=== PATIENT | male | born 1960 | race Caucasian/White ===

== ENCOUNTER → 2017-03-24 | Outpatient (CLI) | payer OTHER ==
--- NOTE | 2017-03-24 08:23 | US ---
EXAMINATION TYPE: US gallbladder DATE OF EXAM: 03/24/2017 COMPARISON: NONE CLINICAL HISTORY: R14.0Bloating,R14.3 Flatulence. Pt states bloating EXAM MEASUREMENTS: Liver Length: 18.4 cm Gallbladder Wall: 0.2 cm CBD: 0.5 cm Right Kidney: 11.4 x 5.9 x 5.5 cm Pancreas: wnl, tail obscured by bowel gas Liver: wnl Gallbladder: wnl Evidence for sonographic Ambrose's sign: No CBD: wnl Right Kidney: wnl IMPRESSION: No gallstones or ultrasound evidence for acute cholecystitis.
--- NOTE | 2017-03-24 09:02 | FL ---
EXAMINATION TYPE: FL UGI air DATE OF EXAM: 03/24/2017 COMPARISON: NONE HISTORY: Bloating and flatulence for one year per patient. TECHNIQUE: A double contrast UGI study is performed. A total of 42 seconds of fluoroscopic time was utilized during procedure. 24 spot images are saved and sent to PACS system. FINDINGS: Camera Engineer image of the abdomen shows no gross abnormality. The esophagus shows satisfactory motility and emptying into the stomach. No evidence of hiatal herni a or stricture noted. No intraluminal mass or diverticulum is appreciated. The stomach shows satisfactory peristalsis and distensibility with mild to moderate mucosal fold prom inence most prominent in the fundus. No evidence of any intraluminal mass or focal ulcer disease. N o significant gastroesophageal reflux was seen during real time performance of this study. The duodenal bulb, sweep, and proximal small bowel loops are unremarkable. IMPRESSION: Suspect mild to moderate underlying gastritis otherwise unremarkable study. Correlate cli nically.
== END | disposition home or self-care (01) ==
LOC: RADUSWWP 07:45
PROVIDERS: ATTEND Family Medicine
DX: R14.0 Abdominal distension (gaseous) (principal); R14.3 Flatulence
CPT/HCPCS: 74246; 76705

== ENCOUNTER → 2020-03-06 | Outpatient (CLI) | payer OTHER | END | disposition home or self-care (01) | LOC: LABWHC1 15:22 | PROVIDERS: ATTEND Family Medicine | DX: Z03.818 Encounter for observation for suspected exposure to other biological agents ruled out (principal); Z20.828 Contact with and (suspected) exposure to other viral communicable diseases | CPT/HCPCS: U0003; C9803 ==

== ENCOUNTER → 2022-07-16 | Outpatient (CLI) | payer OTHER ==
--- NOTE | 2022-07-16 16:23 | US ---
EXAMINATION TYPE: US carotid duplex BILAT DATE OF EXAM: 07/16/2022 COMPARISON: NONE CLINICAL HISTORY: R42 VERTIGO, SYNCOPE. TECHNIQUE: Carotid duplex ultrasound examination. Indirect Doppler criteria was utilized. FINDINGS: EXAM MEASUREMENTS: RIGHT: Peak Systolic Velocity (PSV) cm/sec ----- Right CCA: 88.8 ----- Right ICA: 112.1 ----- Right ECA: 187.3 ICA/CCA ratio: 1.3 RIGHT: End Diastole cm/sec ----- Right CCA: 24.1 ----- Right ICA: 39.6 ----- Right ECA: 38.6 LEFT: Peak Systolic Velocity (PSV) cm/sec ----- Left CCA: 86.6 ----- Left ICA: 91.9 ----- Left ECA: 170.7 ICA/CCA ratio: 1.1 LEFT: End Diastole cm/sec ----- Left CCA: 28.4 ----- Left ICA: 29.2 ----- Left ECA: 38.6 VERTEBRALS (direction of flow): Right Vertebral: Antegrade Left Vertebral: Antegrade Rhythm: Normal No significant stenosis IMPRESSION: Less than 50% stenosis of the carotid bifurcations. Criteria for Assigning % of Stenosis / Diameter reduction (Estimation based on the indirect measurements of the internal carotid artery velocities (ICA PSV). 1. Normal (no stenosis)=ICA PSV < 125 cm/s: ratio < 2.0: ICA EDV<40 cm/s. 2. Less than 50% stenosis=ICA PSV < 125 cm/s: ratio < 2.0: ICA EDV<40 cm/s. 3. 50 to 69% stenosis=ICA PSV of 125 to 230 cm/s: ration 2.0 ? 4.0: ICA EDV 40-100 cm/s. 4. Greater than 70% stenosis to near occlusion= ICA PSV > 230 cm/s: ratio > 4.0: ICA EDV > 100 cm/s. 5. Near occlusion= ICA PSV velocities may be low or undetectable: variable ratio and ICA EDV. 6. Total occlusion=unable to detect flow.
== END | disposition home or self-care (01) ==
LOC: RADUSWWP 15:23
PROVIDERS: ATTEND Family Medicine
DX: I65.23 Occlusion and stenosis of bilateral carotid arteries (principal); R42 Dizziness and giddiness; R55 Syncope and collapse
CPT/HCPCS: 93880

== ENCOUNTER 2023-02-08 14:28 | Emergency (ER) | payer OTHER ==
[2023-02-08 14:45] VITALS: RESP 16
[2023-02-08] MEDS ORDERED: SODIUM CHLORIDE 0.9% 500 ML 500 ML IV STA (15:06)
--- NOTE | 2023-02-08 15:06 | ED ---
Neuro HPI - General Chief Complaint: Neuro Symptoms/Deficit Stated Complaint: stroke symp Time Seen by Provider: 02/08/23 15:05 Source: patient, RN notes reviewed, old records reviewed Mode of arrival: wheelchair Limitations: no limitations - History of Present Illness Is the patient presenting with stroke symptoms?: No -: hour(s) Initial Comments: This is a 62-year-old male to the emergency department for evaluation. Patient is concerned of her blood pressure elevation today. He also felt some per iorbital perioral or his lips being numb and tingly. Patient then noticed his blood pressure be elevated in the second blood pressure was even increase in that. Patient otherwise has no complaints Location: other (Numbness until going around mouth) History of same: No Place: home Quality: numb, tingling Improves With: none Worsens With: none Context: other ([place] with symptoms) Associated Symptoms: denies other symptoms - Related Data Home Medications: Home Medications Medication Instructions Recorded Confirmed ALPRAZolam [Xanax] 0.5 mg PO BID PRN 02/08/23 02/08/23 Albuterol Inhaler [Ventolin Hfa 2 puff INHALATION RT-Q6H PRN 02/08/23 02/08/23 Inhaler] Aspirin EC [Ecotrin Low Dose] 81 mg PO DAILY 02/08/23 02/08/23 Cetirizine HCl [Zyrtec] 10 mg PO DAILY PRN 02/08/23 02/08/23 Cyclobenzaprine [Flexeril] 5 mg PO TID PRN 02/08/23 02/08/23 Fluticasone Nasal [place] [Flonase 1 - 2 spray EA NOSTRIL DAILY PRN 02/08/23 02/08/23 Nasal [place]] Gabapentin [Neurontin] 300 mg PO TID 02/08/23 02/08/23 Latanoprost [Latanoprost 0.005%] 1 drop BOTH EYES HS 02/08/23 02/08/23 Lidocaine [Aspercreme Patch] 1 patch TRANSDERM DAILY PRN 02/08/23 02/08/23 Losartan Potassium 100 mg PO DAILY 02/08/23 02/08/23 Meloxicam [Mobic] 15 mg PO HS 02/08/23 02/08/23 Montelukast [Singulair] 10 mg PO HS 02/08/23 02/08/23 Omeprazole 40 mg PO DAILY 02/08/23 02/08/23 Rosuvastatin [Crestor] 10 mg PO DAILY 02/08/23 02/08/23 Timolol 0.5% Ophth Soln [Timoptic 1 drop BOTH EYES DAILY 02/08/23 02/08/23 0.5% Ophth Soln] Umeclidinium Brm/Vilanterol Tr 1 puff INHALATION RT-DAILY 02/08/23 02/08/23 [Anoro Ellipta 62.5-25 Mcg INH] amLODIPine [Norvasc] 10 mg PO DAILY 02/08/23 02/08/23 Allergies/Adverse Reactions: Allergies Allergy/AdvReac Type Severity Reaction Status Date / Time No Known Allergies Allergy Verified 02/08/23 15:47 Review of Systems ROS Statement: Those systems with pertinent positive or pertinent negative responses have been documented in the HPI. ROS Other: All systems not noted in ROS Statement are negative. General Exam Limitations: no limitations General appearance: alert, in no apparent distress Head exam: Present: atraumatic, normocephalic, normal inspection Eye exam: Present: normal appearance, PERRL, EOMI. Absent: scleral icterus, conjunctival injection, periorbital swelling ENT exam: Present: normal exam, mucous membranes moist Neck exam: Present: normal inspection. Absent: tenderness, meningismus, lymphadenopathy Respiratory exam: Present: normal lung sounds bilaterally. Absent: respiratory distress, wheezes, rales, rhonchi, stridor Cardiovascular Exam: Present: regular rate, normal rhythm, normal heart sounds. Absent: systolic murmur, diastolic murmur, rubs, gallop, clicks GI/Abdominal exam: Present: soft, normal bowel sounds. Absent: distended, tenderness, guarding, rebound, rigid Extremities exam: Present: normal inspection, full ROM, normal capillary refill. Absent: tenderness, pedal edema, joint swelling, calf tenderness Back exam: Present: normal inspection Neurological exam: Present: alert, oriented X3, CN II-XII intact Psychiatric exam: Present: normal affect, normal mood Skin exam: Present: warm, dry, intact, normal color. Absent: rash Stroke MDM - Lab Data Result diagrams: 02/08/23 14:55 02/08/23 14:55 Lab Results 02/08/23 02/08/23 02/08/23 Range/Units 14:55 14:55 14:55 WBC 13.4 H (3.8-10.6) k/uL RBC 4.59 (4.30-5.90) m/uL Hgb 14.7 (13.0-17.5) gm/dL Hct 43.1 (39.0-53.0) % MCV 94.0 (80.0-100.0) fL MCH 32.0 (25.0-35.0) pg MCHC 34.1 (31.0-37.0) g/dL RDW 13.1 (11.5-15.5) % Plt Count 354 (150-450) k/uL MPV 8.9 Neutrophils % 67 % Lymphocytes % 23 % Monocytes % 6 % Eosinophils % 2 % Basophils % 1 % Neutrophils # 8.9 H (1.3-7.7) k/uL Lymphocytes # 3.0 (1.0-4.8) k/uL Monocytes # 0.8 (0-1.0) k/uL Eosinophils # 0.2 (0-0.7) k/uL Basophils # 0.1 (0-0.2) k/uL PT 10.1 (10.0-12.5) sec INR 0.9 (<1.2) APTT 24.3 (22.0-30.0) sec Sodium 139 (137-145) mmol/L Potassium 3.9 (3.5-5.1) mmol/L Chloride 107 (98-107) mmol/L Carbon Dioxide 20 L (22-30) mmol/L Anion Gap 12 mmol/L BUN 16 (9-20) mg/dL Creatinine 0.84 (0.66-1.25) mg/dL Est GFR (CKD-EPI)AfAm >90 (>60 ml/min/1.73 sqM) Est GFR (CKD-EPI)NonAf >90 (>60 ml/min/1.73 sqM) Glucose 107 H (74-99) mg/dL Calcium 9.4 (8.4-10.2) mg/dL Phosphorus 3.2 (2.5-4.5) mg/dL Magnesium 1.8 (1.6-2.3) mg/dL Total Bilirubin 0.5 (0.2-1.3) mg/dL AST 32 (17-59) U/L ALT 30 (4-49) U/L Alkaline Phosphatase 135 H (38-126) U/L Creatine Kinase 175 H (55-170) U/L Troponin I (0.000-0.034) ng/mL Total Protein 7.1 (6.3-8.2) g/dL Albumin 4.2 (3.5-5.0) g/dL 02/08/23 Range/Units 14:55 WBC (3.8-10.6) k/uL RBC (4.30-5.90) m/uL Hgb (13.0-17.5) gm/dL Hct (39.0-53.0) % MCV (80.0-100.0) fL MCH (25.0-35.0) pg MCHC (31.0-37.0) g/dL RDW (11.5-15.5) % Plt Count (150-450) k/uL MPV Neutrophils % % Lymphocytes % % Monocytes % % Eosinophils % % Basophils % % Neutrophils # (1.3-7.7) k/uL Lymphocytes # (1.0-4.8) k/uL Monocytes # (0-1.0) k/uL Eosinophils # (0-0.7) k/uL Basophils # (0-0.2) k/uL PT (10.0-12.5) sec INR (<1.2) APTT (22.0-30.0) sec Sodium (137-145) mmol/L Potassium (3.5-5.1) mmol/L Chloride (98-107) mmol/L Carbon Dioxide (22-30) mmol/L Anion Gap mmol/L BUN (9-20) mg/dL Creatinine (0.66-1.25) mg/dL Est GFR (CKD-EPI)AfAm (>60 ml/min/1.73 sqM) Est GFR (CKD-EPI)NonAf (>60 ml/min/1.73 sqM) Glucose (74-99) mg/dL Calcium (8.4-10.2) mg/dL Phosphorus (2.5-4.5) mg/dL Magnesium (1.6-2.3) mg/dL Total Bilirubin (0.2-1.3) mg/dL AST (17-59) U/L ALT (4-49) U/L Alkaline Phosphatase (38-126) U/L Creatine Kinase (55-170) U/L Troponin I <0.012 (0.000-0.034) ng/mL Total Protein (6.3-8.2) g/dL Albumin (3.5-5.0) g/dL - NIH Stroke Scale 1a. Level of Consciousness: (0) alert 1b. LOC Questions: (0) answers correctly 1c. LOC Commands: (0) performs tasks correctly 2. Best Gaze: (0) normal 3. Visual: (0) no visual loss 4. Facial Palsy: (0) normal symmetrical movement 5a. Motor Arm Left: (0) no drift 5b. Motor Arm Right: (0) no drift 6a. Motor Leg Left: (0) no drift 6b. Motor Leg Right: (0) no drift 7. Limb Ataxia: (0) absent 8. Sensory: (0) normal 9. Best Language: (0) no aphasia 10. Dysarthria: (0) normal 11. Extinction/Inattention: (0) no abnormality - Medical Decision Making 62 male to the emergency department for evaluation patient presents with lip paresthesias and hypertension. Patient symptoms are improved here in the ER he feels well can be discharged home - Radiology Data Radiology results: report reviewed (CT brain is negative for acute disease), image reviewed - EKG Data -: EKG Interpreted by Me (EKG is sinus a sent to 135 QRS 100 QTc 432) Past Medical History Past Medical History: Hypertension History of Any Multi-Drug Resistant Organisms: None Reported Past Surgical History: No Surgical Hx Reported Additional Past Anesthesia/Blood Transfusion Reaction / Comment(s): never had anesthesia, no family problems with it Past Psychological History: Anxiety Past Alcohol Use History: Occasional Past Drug Use History: Marijuana - Past Family History Mother Family Medical History: Cancer Course Vital Signs 02/08/23 02/08/23 02/08/23 14:38 14:48 17:37 Temperature 98.4 F 98.4 F Pulse Rate 102 H 102 H 89 Respiratory 16 16 16 Rate Blood Pressure 196/89 196/89 183/103 O2 Sat by Pulse 94 L 94 L 97 Oximetry 02/08/23 17:56 Temperature 98 F Pulse Rate Respiratory Rate Blood Pressure O2 Sat by Pulse Oximetry - Reevaluation(s) Reevaluation #1: 02/08/23 17:38 Medical record is reviewed Reevaluation #2: 02/08/23 17:39 Patient symptoms unchanged and blood pressures improved Reevaluation #3: Informed results and questions answered Reevaluation #4: 02/08/23 17:39 Was pt. sent in by a medical professional or institution (NARCISA Rosales, SOFTWARE SYSTEMS ANALYST, urgent care, hospital, or correction...) When possible be specific @ -no Did you speak to anyone other than the patient for history (EMS, parent, family, police, friend...)? What history was obtained from this source @ -no Did you review nursing and triage notes (agree or disagree)? Why? @ -agree Are old charts reviewed (outside hosp., previous admission, EMS record, old EKG, old radiological studies, urgent care reports/EKG's, correction records)? Report findings @ -yes Differential Diagnosis (chest pain, altered mental status, abdominal pain women, abdominal pain men, vaginal bleeding, weakness, fever, dyspnea, syncope, headache, dizziness, GI bleed, back pain, seizure, CVA, palpatations, mental health, musculoskeletal)? @ -prior EKG interpreted by me (3pts min.). @ -yes X-rays interpreted by me (1pt min.). @ -yes CT interpreted by me (1pt min.). @ -no U/S interpreted by me (1pt. min.). @ -no What testing was considered but not performed or refused? (CT, X-rays, U/S, labs)? Why? @ -none What meds were considered but not given or refused? Why? @ -none Did you discuss the management of the patient with other professionals (professionals i.e. NARCISA Rosales, SOFTWARE SYSTEMS ANALYST, lab, RT, psych nurse, social group worker, fire prevention specialist, teacher, ethics officer, manager case management)? Give summary @ -no Was smoking cessation discussed for >3mins.? @ -no Was critical care preformed (if so, how long)? @ -no Were there social determinants of health that impacted care today? How? (Homelessness, low income, unemployed, alcoholism, drug addiction, transportation, low edu. Level, literacy, decrease access to med. care, [facility], rehab)? @ -none Was there de-escalation of care discussed even if they declined (Discuss DNR or withdrawal of care, Hospice)? DNR status @ -no What co-morbidities impacted this encounter? (DM, HTN, Smoking, COPD, CAD, Cancer, CVA, ARF, Chemo, Hep., AIDS, mental health diagnosis, sleep apnea, morbid obesity)? @ -none Was patient admitted / discharged? Hospital course, mention meds given and route, prescriptions, significant lab abnormalities, going to OR and other pertinent info. @ - Undiagnosed new problem with uncertain prognosis? @ -no Drug Therapy requiring intensive monitoring for toxicity (Heparin, Nitro, Insulin, Cardizem)? @ -no Were any procedures done? @ -no Diagnosis/symptom? @ - Acute, or Chronic, or Acute on Chronic? @ -Acute Uncomplicated (without systemic symptoms) or Complicated (systemic symptoms)? @ -Complicated Side effects of treatment? @ -no Exacerbation, Progression, or Severe Exacerbation? @ -exacerbation Poses a threat to life or bodily function? How? (Chest pain, [place], SD, pneumonia, PE, COPD, DKA, ARF, appy, cholecystitis, CVA, Diverticulitis, Homicidal, Suicidal, threat to staff... and all critical care pts) @ -yes Reevaluation #5: 02/08/23 17:40 Differential CVA Ischemic stroke, hemorrhagic stroke, brain tumor, atypical migraine, Wernicke's encephalopathy, seizure, multiple sclerosis, meningitis, encephalitis, hypoglycemia, Guillain-Robin, electrolytes disturbance, myasthenia gravis.... This is not meant to be an all-inclusive list Critical Care Time Critical Care Time: Yes Total Critical Care Time: 31 Disposition Clinical Impression: Hypertension, Paresthesia of lower lip Disposition: ADMITTED IP TO THIS [facility] Condition: Fair Instructions (If sedation given, give patient instructions): Paresthesia (ED), Hypertension (ED) Is patient prescribed a controlled substance at d/c from ED?: No Referrals: Tiffany Amador MD [Primary Care Provider] - 1-2 days Time of Disposition: 17:40
[2023-02-08 15:30] LABS: ALT 30 U/L (4-49); AST 32 U/L (17-59); African American GFR (CKD) >90 (>60 ml/min/1.73 sqM); Albumin 4.2 g/dL (3.5-5.0); Alkaline Phosphatase 135 U/L (38-126); Anion Gap 12 mmol/L; Blood Urea Nitrogen 16 mg/dL (9-20); Calcium 9.4 mg/dL (8.4-10.2); Carbon Dioxide 20 mmol/L (22-30); Chloride 107 mmol/L (98-107); Creatine Kinase 175 U/L (55-170); Glucose 107 mg/dL (74-99); Magnesium 1.8 mg/dL (1.6-2.3); Non-African American GFR(CKD) >90 (>60 ml/min/1.73 sqM); Phosphorus 3.2 mg/dL (2.5-4.5); Potassium 3.9 mmol/L (3.5-5.1); Sodium 139 mmol/L (137-145); Total Bilirubin 0.5 mg/dL (0.2-1.3); Total Protein 7.1 g/dL (6.3-8.2)
[2023-02-08 15:36] LABS: Basophils # (A) 0.1 k/uL (0-0.2); Basophils % (A) 1 %; Eosinophils # (A) 0.2 k/uL (0-0.7); Eosinophils % (A) 2 %; HCT 43.1 % (39.0-53.0); HGB 14.7 gm/dL (13.0-17.5); Lymphocytes % (A) 23 %; MCHC 34.1 g/dL (31.0-37.0); Mean Platelet Volume 8.9; Monocytes # (A) 0.8 k/uL (0-1.0); Monocytes % (A) 6 %; Neutrophils # (A) 8.9 k/uL (1.3-7.7); Neutrophils % (A) 67 %; Platelet Count 354 k/uL (150-450); RBC 4.59 m/uL (4.30-5.90); RDW 13.1 % (11.5-15.5); WBC 13.4 k/uL (3.8-10.6)
[2023-02-08 15:48] LABS: INR 0.9 (<1.2); Partial Thromboplastin Time 24.3 sec (22.0-30.0); Prothrombin Time 10.1 sec (10.0-12.5)
--- NOTE | 2023-02-08 15:53 | CT ---
EXAMINATION TYPE: CT brain wo con CT DLP: 1096.4 mGycm, Automated exposure control for dose reduction was used. DATE OF EXAM: 02/08/2023 3:33 PM COMPARISON: None. CLINICAL INDICATION:Male, 62 years old with history of weakness, facial numbness above top lip that s tarted today TECHNIQUE: Brain: Multiple axial CT images of the brain were obtained without IV contrast. Coronal and sagittal reformatted view. FINDINGS: Brain: Extra-axial spaces: No abnormal extra-axial fluid collections. Ventricular system: Within normal limits Cerebral parenchyma: No acute intraparenchymal hemorrhage or mass effect. The gupta-white junction is well differentiated. Scattered hypoattenuating areas are seen within the white matter. Empty sella morphology. Cerebellum: Unremarkable. Mass effect: No evidence of midline shift. Intracranial vasculature: Atherosclerotic calcifications of the intracranial vessels. Soft tissues: Normal. Calvarium/osseous structures: No depressed skull fracture. Paranasal sinuses and mastoid air cells: Bilateral mastoid air cells are clear. Likely bilateral infe rior maxillary sinus mucous retention cysts. Visualized orbits: Orbital contents are intact. IMPRESSION: 1. No acute intracranial process. 2. Nonspecific white matter changes, likely secondary to chronic small vessel ischemic disease.
[2023-02-08] MEDS ORDERED: METOPROLOL TARTRATE 50 MG TAB PO STA (17:42)
[2023-02-08] MEDS ORDERED: cloNIDine HCL 0.1 MG TAB PO STA (17:42)
[2023-02-08 17:44] VITALS: BP 183/103; PULSE 89
[2023-02-08 18:00] VITALS: TEMP 98
== END 2023-02-08 17:56 | disposition other institution (70) ==
LOC: EC 14:28
DX: I10 Essential (primary) hypertension (principal); R20.2 Paresthesia of skin; F41.9 Anxiety disorder, unspecified; F12.90 Cannabis use, unspecified, uncomplicated; Z79.82 Long term (current) use of aspirin; Z79.899 Other long term (current) drug therapy
CPT/HCPCS: 36415; 70450; 80053; 82550; 83735; 84100; 84484; 85025; 85610; 85730; 93005; 96360; 99285

== ENCOUNTER → 2023-02-10 | Outpatient (CLI) | payer OTHER ==
--- NOTE | 2023-02-10 21:46 | CTL ---
EXAMINATION TYPE: CT Low Dose Lung DATE OF EXAM ORDERED: 02/10/2023 HISTORY: 62-year-old male smoker with 50 pack-year history. Z87.891 PERSONAL HISTORY OF NICOTINE DEP ENDENCE. Lung cancer screening CT DLP: 126.[address] CTDI: 3.6 mGy Automated exposure control for dose reduction was used. SCREENING VISIT: Baseline COMPARISON: Radiograph 09/03/2022 TECHNIQUE: Low dose computed tomography scan was performed through the chest with coronal and sagitta l reconstructions. CT DIAGNOSTIC QUALITY: Satisfactory FINDINGS: The heart is normal size with trace anterior basilar pericardial fluid. LAD and RCA coronary artery c alcifications are present. The aorta is normal caliber with mild atherosclerotic arch calcifications and conventional arch was a branching anatomy. Scattered nonenlarged mediastinal lymph nodes are present. Subcarinal lymph node borderline at 1.4 cm . There is mild bilateral gynecomastia. Hazy dependent atelectasis is present. Qens-li-pjshssfi diffuse bronchial wall thickening. Mild to mo derate centrilobular emphysema particularly in the upper lungs. 8mm inferior lingular pulmonary nodule, axial image 191. Otherwise, no suspicious pulmonary nodule is seen. Visualized upper abdomen shows mild fatty infiltration of the liver. Bones: Mild degenerative disc disease mid to lower thoracic spine. Some anterior bridging endplate sp ondylosis lower thoracic spine. IMPRESSION: 1. Lung RADS Category 4A (suspicious, 5-15% chance of malignancy); a solitary 8 mm inferior lingular pulmonary nodule on baseline screening. Three-month follow-up CT chest to reassess. 2. 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 Recommend smoking cessation. 3. Mild fatty infiltration of the liver. CT LUNG RAD AND CT CHEST RECOMMENDATION: Lung-Rad 4A Suspicious: Follow-up 3 month LDCT or PET/CT may be used when there is a > 8 mm solid component. S Modifier (other clinically significant findings): None
== END | disposition home or self-care (01) ==
LOC: RADCTMAIN 12:44
PROVIDERS: ATTEND Family Medicine
DX: Z12.2 Encounter for screening for malignant neoplasm of respiratory organs (principal); J43.2 Centrilobular emphysema; K76.0 Fatty (change of) liver, not elsewhere classified; R91.1 Solitary pulmonary nodule; F17.210 Nicotine dependence, cigarettes, uncomplicated
CPT/HCPCS: 71271

== ENCOUNTER 2023-03-02 09:34 | Day surgery (SDC) | payer OTHER ==
[2023-03-01 10:33] VITALS: BMI 29.5
[~2023-03-02 09:34] MED LIST: LACTATED RINGERS 1,000 ML IV SCH; LIDOCAINE 1% (10MG/ML) FOR IV START INTRADERMA PRN
[2023-03-02 10:44] VITALS: TEMP 98.2
[2023-03-02] MEDS ORDERED: LIDOCAINE 1% (10MG/ML) FOR IV START INTRADERMA ONE (10:47)
[2023-03-02] MEDS ORDERED: LIDOCAINE 2% (PF) 20 MG/ML 5 ML VIAL ONE (11:34)
[2023-03-02] MEDS ORDERED: PROPOFOL 10 MG/ML 20 ML VIAL IV ONE (11:34)
--- NOTE | 2023-03-02 12:01 | P.PCN ---
Date of Procedure: 03/02/23 Procedure(s) Performed: Brief history: Patient is a pleasant 62-year-old white male scheduled for an elective upper endoscopy as well as colonoscopy as a part of evaluation of GERD and screening for colon cancer/polyps cologuard. Procedure performed: Esophagogastroduodenoscopy with biopsy Colonoscopy with snare polypectomy and Endo Clip placement Preoperative diagnosis: GERD Screening for colon cancer/polyps cologuard. Anesthesia: MAC Procedure: After informed consent was obtained from the patient was brought into the endoscopy unit and IV sedation was administered by anesthesia under continuous monitoring. Initially upper endoscopy was done. The Olympus GF 160 video endoscope was inserted inserted into the mouth and esophagus intubated without any difficulty and was gradually advanced into the stomach and duodenum and carefully examined. The bulb and mild duodenitis and second part of the duodenum appeared normal. The scope was then withdrawn into the stomach adequately insufflated with air and upon careful examination the antrum had mild gastritis and biopsies were done from this area. The body, cardia and fundus appeared normal. The scope was then withdrawn into the esophagus. The GE junction was located at 45 cm to the incisors. It appeared irregular with 3 mm tongue of Holly's appearing mucosa proximal to the GE junction status post biopsy.. Rest of the esophagus appeared normal. Patient tolerated the procedure well. At this time the patient continued to remain sedation. Initial digital rectal examination was normal. Olympus CF 160 video colonoscope was then inserted into the rectum and gradually advanced to the cecum without any difficulty. Careful examination was performed as the scope was gradually being withdrawn. The prep was excellent. The cecum, and a 5 mm polyp removed by snare polypectomy. ascending colon, appeared normal. In the hepatic flexure there was a 2 cm broad-based polyp removed by snare polypectomy followed by Endo Clip placement. In the transverse colon there was a 1 cm polyp removed by snare polypectomy. In the mid transverse colon there was a 3 cm submucosal lipoma noted. Rest of the transverse colon, descending colon, sigmoid colon and rectum appeared normal. Retroflexion was performed in the rectum and no lesions were noted. Patient tolerated the procedure well. Impression: 1. Upper endoscopy revealed mild antral gastritis, duodenitis and short segment Holly's esophagus 2. Colonoscopy revealed: a) 5 mm cecal polyp status post polypectomy b) 2 cm broad-based hepatic flexure polyp status post polypectomy c) 1 cm proximal transverse colon polyp status post polypectomy Recommendations: Findings of this examination were discussed with the patient as well as his family. He was advised to follow with the biopsy results. Continue with omeprazole 20 mg daily and follow antireflux measures. If the biopsy reveals Holly's esophagus he can have a repeat upper endoscopy in 3 years. Recommend repeat colonoscopy in 3 years
[2023-03-02 12:46] VITALS: BP 126/74; PULSE 89; RESP 20
== END 2023-03-02 12:37 | disposition home or self-care (01) ==
LOC: ORWHC2ENDO 09:34
PROVIDERS: ATTEND Internal Medicine Gastroenterology
DX: K29.50 Unspecified chronic gastritis without bleeding (principal); K21.00 Gastro-esophageal reflux disease with esophagitis, without bleeding; D12.0 Benign neoplasm of cecum; D12.3 Benign neoplasm of transverse colon; K22.70 Barrett's esophagus without dysplasia; F12.90 Cannabis use, unspecified, uncomplicated; I10 Essential (primary) hypertension; J44.9 Chronic obstructive pulmonary disease, unspecified; Z79.02 Long term (current) use of antithrombotics/antiplatelets; Z79.51 Long term (current) use of inhaled steroids; Z79.82 Long term (current) use of aspirin; Z79.899 Other long term (current) drug therapy
CPT/HCPCS: 88305; 45382; 45385; 43239; J2704; J2001

== ENCOUNTER → 2023-06-14 | Outpatient (CLI) | payer OTHER ==
--- NOTE | 2023-06-14 15:51 | CTL ---
EXAMINATION TYPE: CT Low Dose Lung DATE OF EXAM ORDERED: 06/14/2023 HISTORY: Lung cancer screening CT DLP: [address] CTDI: 3.17 mGy Automated exposure control for dose reduction was used. COMPARISON: 02/10/2023 TECHNIQUE: Low dose computed tomography scan was performed through the chest at 1 mm thick sections a nd reconstructed images in multiple planes at 1 mm and 5 mm thick sections. Suboptimal diagnostic arya lity under 1 mm slices. FINDINGS: There are moderate emphysematous changes. The 7 - 8 mm nodule in the left lingula is stable. No new or suspicious lung mass or nodule is seen w ithin limits of technique. There is no airspace/consolidative density or abnormal interstitial density. There is no pleural effusion, pleural thickening or pneumothorax. The great vessels chest are normal. Limited scans the upper abdomen reveals no abnormality. No focal osseous lesions are seen IMPRESSION: 1. Lung metastases category 2 benign. Stable 7-8 mm nodule in the lingula. Continue routine screening at yearly intervals. 2. Moderate emphysematous changes. 3. No acute cardiopulmonary disease.
== END | disposition home or self-care (01) ==
LOC: RADCTMAIN 13:06
PROVIDERS: ATTEND Family Medicine
DX: Z12.2 Encounter for screening for malignant neoplasm of respiratory organs (principal); C78.02 Secondary malignant neoplasm of left lung; F17.210 Nicotine dependence, cigarettes, uncomplicated
CPT/HCPCS: 71271

== ENCOUNTER → 2023-06-14 | Outpatient (CLI) | payer OTHER ==
[2023-06-14 12:46] VITALS: BP 186/83; PULSE 90; RESP 16; TEMP 97.7
--- NOTE | 2023-06-14 12:48 | P.PAINPG ---
PQRS Measure Charge Sheet Comment: HISTORY OF PRESENT ILLNESS: A 63 yr old male presents today w severe and chronic LBP x 1 yr secondary to DDD, spondylosis and facet arthropathy without myelopathy for evaluation. Pt states pain level is provoked at 7 /10 in intensity, constant, localized in the lower lumbar spine, tight in character w shooting pain towards the RLE. Pain is provoked by laying supine for periods of 2 hr or more. Pain is alleviated by physician guided exercises from Dr York daily since Jan 2023, medications, repositioning and rest. Pt has BP of 186/ 83 which is 2nd reading of stage III hypertension, needs his BP medications adjusted and has been counseled again about dangers of elevated BP. Admits to occasional tobacco, ETOH and cannabis use. Pt is urged to go to ER for hypertensive urgency but appears disinterested at this time. MA w wheelchair provided. Interventional procedures include DENIES Medications include Neurontin, Flexeril, Mobic, ASA, Cannabis use REVIEW OF ORGAN SYSTEMS: CONSTITUTIONAL: No fevers or chills. No recent weight loss. NEUROLOGICAL: + numbness and tingling along the distal extremities. No seizure disorders or headaches. MUSCULOSKELETAL: + pain PSYCHIATRIC: Denies current depression or suicidal thoughts. Physical Examinations : Constitutional : Cooperative , not in acute distress . Neurologic : Cranial nerve II to XII intact. No focal neurological deficits. Psychiatric : alert & oriented x 3. Matching mood & appropriate affect. Judgment & insight intact. Musculoskeletal : Cervical Spine Motor strength in the deltoid and biceps: Normal right side. Normal Left side Motor strength biceps and the wrist extensors: Normal right side . Normal left side Motor strength in the triceps muscle: Normal right side. Normal left side Deep tendon reflexes: Normal at the biceps. Normal at Brachioradialis. Normal at triceps Vertebral body tenderness to deep palpation over Cervical facet loading test: positive bilaterally Spurling test: positive bilaterally Neck distraction test: positive bilaterally Eron sign: positive bilaterally Lumbar spine Motor strength lower extremities ,thigh and legs 5/5 Right side , 5/5 Left side Deep tendon reflexes : Normal Knee Jerk. Normal Ankle Jerk Vertebral body tenderness over L4 Awad Test positive Lumbar facet Loading Test: positive Right / positive Left Range of motion of the lumbar spine Flexion 30 degrees, extension 10 degrees Straight Leg Raise test: Left/ Right positive at <40 degrees [place] test: positive right / positive left. Severe tenderness over the Sacroiliac joint on the Right / Left sides Gaenslen test: positive bilaterally Seated flexion test: positive bilaterally. Sacral spine : Severe tenderness over the Sacroiliac joint: right side / left side Range of motion: Flexion of the lumbar spine <60 degrees Range of motion: Extension of the lumbar spine <20 degrees Gaenslen's Test positive Federico's Test positive [place] test: positive right side / left side Thigh Thrust Test Sacral Thrust Test Imaging: MRI noncontrast of the lumbar spine from 11/11/22 reviewed Assessment/ Plan : Lumbar anterolisthesis Recommendation of BELGICA L4-L5 #1. May need a series of injections for optimal pain relief. Risks, benefits of procedure discussed and pt verbalized understanding. Protocol for discontinuation/ continuation of medications valery procedure discussed. All questions answered. I have spent greater than 30 minutes on patient care today. Dr Vanegas was available by phone for the evaluation of this patient. The time was used to review the medical records including relevant urine studies and Prescription history (MAPs), review of the available imaging, evaluation and examination of the patient, coordination of care with the medical staff and if applicable referring physicians, as well as creation of the medical record PQRS Narrative: Smoking Status Current every day smoker Home Medications: Ambulatory Orders ALPRAZolam [Xanax] 0.5 mg PO BID PRN 02/08/23 Albuterol Inhaler [Ventolin Hfa Inhaler] 2 puff INHALATION RT-Q6H PRN 02/08/23 Aspirin EC [Ecotrin Low Dose] 81 mg PO DAILY 02/08/23 Cetirizine HCl [Zyrtec] 10 mg PO DAILY PRN 02/08/23 Fluticasone Nasal [place] [Flonase Nasal [place]] 1 - 2 spray EA NOSTRIL DAILY PRN 02/08/23 Gabapentin [Neurontin] 300 mg PO TID 02/08/23 Latanoprost [Latanoprost 0.005%] 1 drop BOTH EYES HS 02/08/23 Lidocaine [Aspercreme Patch] 1 patch TRANSDERM DAILY PRN 02/08/23 Losartan Potassium 100 mg PO DAILY 02/08/23 Meloxicam [Mobic] 15 mg PO HS 02/08/23 Montelukast [Singulair] 10 mg PO HS 02/08/23 Omeprazole 40 mg PO DAILY 02/08/23 Rosuvastatin [Crestor] 10 mg PO DAILY 02/08/23 Timolol 0.5% Ophth Soln [Timoptic 0.5% Ophth Soln] 1 drop BOTH EYES DAILY 02/08/23 Umeclidinium Brm/Vilanterol Tr [Anoro Ellipta 62.5-25 Mcg INH] 1 puff INHALATION RT-DAILY 02/08/23 amLODIPine [Norvasc] 10 mg PO DAILY 02/08/23 traZODone HCL 100 mg PO DAILY 03/01/23 Controlled Substance Measures - Controlled Substance Measures Is patient prescribed a controlled substance at discharge?: No
== END ==
LOC: PNWHC3 12:14
PROVIDERS: ATTEND Specialist
DX: M43.16 Spondylolisthesis, lumbar region (principal); F17.200 Nicotine dependence, unspecified, uncomplicated; Z79.82 Long term (current) use of aspirin
CPT/HCPCS: 99211

== ENCOUNTER 2023-07-08 12:03 | Day surgery (SDC) | payer OTHER ==
[~2023-07-08 12:03] MED LIST changes: -LIDOCAINE 1% (10MG/ML) FOR IV START INTRADERMA PRN
[2023-07-08 12:55] VITALS: TEMP 98.2
[2023-07-08] MEDS ORDERED: methylPREDNISolone ACETATE 80 MG/ML 1 ML VIAL ONE (13:06)
[2023-07-08] MEDS ORDERED: IOPAMIDOL M200 10 ML VIAL ONE (13:06)
--- NOTE | 2023-07-08 13:14 | P.PCN ---
Date of Procedure: 07/08/23 Procedure(s) Performed: PREOPERATIVE DIAGNOSIS: 1- Lumbar Degenerative Disc Diseases 2-Lumbar spondylosis with Facet arthropathy without myelopathy. POSTOPERATIVE DIAGNOSIS: 1-lumbar degenerative disc disease. 2-lumbar spondylosis with facet arthropathy without myelopathy. PROCEDURE 1. Lumbar epidural steroid injection under fluoroscopic guidance at the L4-5 level. (Fluoroscopy imaging was available in radiology department) 2. Lumbar epidurogram. ANESTHESIA: Lidocaine 1% 3 and then only. EBL: Minimal PROCEDURE INDICATION: The patient with low back pain and radiculitis symptoms unresponsive to conservative treatment. Fluoroscopy was used to optimize visualization of the needle placement and to maximize safety. PROCEDURE DESCRIPTION / TECHNIQUE: The patient was seen and identified in the preoperative area. Risks, benefits, complications including but not limited to infections ,bleeding ,allergic reaction to the medications ,nerve damage and not complete pain releife , and alternatives were discussed with the patient. The patient agreed to proceed with the procedure and signed the consent, and vital signs were stable. Patient was taken to the OR and time out was completed. The patient was placed in the prone position on procedure table and a pillow was placed under the ab domen to reduce lumbar lordosis. The lumbosacral area was prepped and draped in the usual sterile fashion.ere closely monitored during the procedure. Vital signs was monitered during the entire procedure. Using anterior-posterior fluoroscopy, the L4-5 interlaminar space was identified and the skin over this site was marked and then infiltrated with 1% lidocaine subcutaneously. Subsequently, a 20-gauge Tuohy epidural needle was inserted and advanced toward the epidural space using the ``Loss of resistance technique and guided by AP and lateral fluoroscopy. The correct needle position in the epidural space was verified with the injection of 2 mL of the water soluble contrast dye Isovue 200 contrast and observing an excellent epidurogram with the epidural spread of the dye, after negative aspiration for blood and CSF and in the absence of paresthesias. Again after negative aspiration, a 6 ml mixture containing 80 mg of Depo-medrol ( Preservetive Free ), and 2 ml of preservative free Normal Saline, and 2 ml of preservative free lidocaine 1% solution was injected and a washout of epidurogram was seen. Needle was withdrawn intact, skin was cleansed, and bandages were applied. COMPLICATIONS: None DISPOSITION / PLANS: The patient was placed in a supine position and transferred to the recovery area in a stable condition for observation. There was no evidence of lower extremity motor or sensory deficit after the procedure. Patient was discharged from the recovery room after meeting discharge criteria. Home discharge instructions were given to the patient by the staff. The patient was reexamined prior to discharge. The patient will schedule a follow up in the clinic in 2-4 weeks.
[2023-07-08 13:29] VITALS: PULSE 79; RESP 18
[2023-07-08 14:03] VITALS: BP 143/81
--- NOTE | 2023-07-08 15:38 | FL ---
EXAMINATION TYPE: FL guided pain mgmt statistic Intraoperative/procedural fluoroscopic services were provided. Total fluoroscopy time is 2.5 seconds with a total of 1 submitted images to PACS. Please se e the operative/procedural note for further details. DAP: [id number] mGym2
== END 2023-07-08 13:43 | disposition home or self-care (01) ==
LOC: ORPAIN 12:03
PROVIDERS: ATTEND Specialist
DX: M51.16 Intervertebral disc disorders with radiculopathy, lumbar region (principal); M47.26 Other spondylosis with radiculopathy, lumbar region
CPT/HCPCS: 62323; J1040; Q9966

== ENCOUNTER → 2023-10-18 | Outpatient (CLI) | payer OTHER ==
[2023-10-18 12:53] VITALS: BP 144/79; PULSE 65; RESP 16
--- NOTE | 2023-10-18 15:03 | P.PAINPG ---
PQRS Measure Charge Sheet Comment: HISTORY OF PRESENT ILLNESS: A 63 yr old male presents today w severe and chronic LBP x 1 yr secondary to DDD, spondylosis and facet arthropathy without myelopathy for evaluation s/p BELGICA L4-L5 #1. Pt states he experienced 90 % pain relief x 12 wks s/p procedure. Pt states pain level is provoked at 6 /10 in intensity, constant, localized in the lower lumbar spine, tight in character w occasional shooting pain towards the RLE. Pain is provoked by laying supine for periods > 2 hr. Pain is alleviated by physician guided exercises from Dr York daily since Jan 2023, medications, repositioning and rest. Interventional procedures include BELGICA L4-L5 x1 Medications include Neurontin, Flexeril, Mobic, ASA, Cannabis use REVIEW OF ORGAN SYSTEMS: CONSTITUTIONAL: No fevers or chills. No recent weight loss. NEUROLOGICAL: + numbness and tingling along the distal extremities. No seizure disorders or headaches. MUSCULOSKELETAL: + pain PSYCHIATRIC: Denies current depression or suicidal thoughts. Physical Examinations : Constitutional : Cooperative , not in acute distress . Neurologic : Cranial nerve II to XII intact. No focal neurological deficits. Psychiatric : alert & oriented x 3. Matching mood & appropriate affect. Judgment & insight intact. Musculoskeletal : Cervical Spine Motor strength in the deltoid and bic eps: Normal right side. Normal Left side Motor strength biceps and the wrist extensors: Normal right side . Normal left side Motor strength in the triceps muscle: Normal right side. Normal left side Deep tendon reflexes: Normal at the biceps. Normal at Brachioradialis. Normal at triceps Vertebral body tenderness to deep palpation over Cervical facet loading test: positive bilaterally Spurling test: positive bilaterally Neck distraction test: positive bilaterally Eron sign: positive bilaterally Lumbar spine Motor strength lower extremities ,thigh and legs 5/5 Right side , 5/5 Left side Deep tendon reflexes : Normal Knee Jerk. Normal Ankle Jerk Vertebral body tenderness over L4 Awad Test positive Lumbar facet Loading Test: positive Right / positive Left Range of motion of the lumbar spine Flexion 30 degrees, extension 10 degrees Straight Leg Raise test: Left/ Right po sitive at <40 degrees [place] test: positive right / positive left. Severe tenderness over the Sacroiliac joint on the Right / Left sides Gaenslen test: positive bilaterally Seated flexion test: positive bilaterally. Sacral spine : Severe tenderness over the Sacroiliac joint: right side / left side Range of motion: Flexion of the lumbar spine <60 degrees Range of motion: Extension of the lumbar spine <20 degrees Gaenslen's Test positive Federico's Test positive [place] test: positive right side / left side Thigh Thrust Test Sacral Thrust Test Imaging: MRI noncontrast of the lumbar spine from 11/11/22 reviewed Assessment/ Plan : Lumbar anterolisthesis Recommendation of R paramedian BELGICA L4-L5 #2. May need a series of injections for optimal pain relief. Risks, benefits of procedure discussed and pt verbalized understanding. Protocol for discontinuation/ continuation of medications valery procedure discussed. All questions answered. I have spent greater than 30 minutes on patient care today. Dr Vanegas was available by phone for the evaluation of this patient. The time was used to review the medical records including relevant urine studies and Prescription history (MAPs), review of the available imaging, evaluation and examination of the patient, coordination of care with the medical staff and if applicable referring physicians, as well as creation of the medical record PQRS Narrative: Smoking Status Current every day smoker Hx Alcohol Use (MH) Yes: OCCASIONAL Home Medications: Ambulatory Orders ALPRAZolam [Xanax] 0.5 mg PO BID PRN 02/08/23 Albuterol Inhaler [Ventolin Hfa Inhaler] 2 puff INHALATION RT-Q6H PRN 02/08/23 Cetirizine HCl [Zyrtec] 10 mg PO QAM PRN 02/08/23 Fluticasone Nasal [place] [Flonase Nasal [place]] 1 - 2 spray EA NOSTRIL DAILY PRN 02/08/23 Gabapentin [Neurontin] 300 mg PO TID 02/08/23 Latanoprost [Latanoprost 0.005%] 1 drop BOTH EYES HS 02/08/23 Lidocaine [Aspercreme Patch] 1 patch TRANSDERM DAILY PRN 02/08/23 Losartan Potassium 100 mg PO QAM 02/08/23 Meloxicam [Mobic] 15 mg PO HS 02/08/23 Montelukast [Singulair] 10 mg PO HS 02/08/23 Omeprazole 40 mg PO HS 02/08/23 Rosuvastatin [Crestor] 10 mg PO QAM 02/08/23 Timolol 0.5% Ophth Soln [Timoptic 0.5% Ophth Soln] 1 drop BOTH EYES DAILY 02/08/23 amLODIPine [Norvasc] 10 mg PO QAM 02/08/23 traZODone HCL 100 mg PO HS 03/01/23 Cyclobenzaprine [Flexeril] 10 mg PO TID PRN 07/06/23 Timolol [Betimol 0.5% Ophth Soln] 1 drop BOTH EYES BID 07/06/23 Tiotropium 18 Mcg/Puff [Spiriva] 1 puff INHALATION BID 07/06/23 Controlled Substance Measures - Controlled Substance Measures Is patient prescribed a controlled substance at discharge?: No
== END ==
LOC: PNWHC3 12:28
PROVIDERS: ATTEND Specialist
DX: M43.16 Spondylolisthesis, lumbar region (principal); F17.200 Nicotine dependence, unspecified, uncomplicated
CPT/HCPCS: 99211

== ENCOUNTER 2023-11-11 12:19 | Day surgery (SDC) | payer OTHER ==
[2023-11-11 12:40] VITALS: TEMP 98
[2023-11-11] MEDS ORDERED: IOPAMIDOL M300 15ML VIAL ONE (12:45)
[2023-11-11] MEDS ORDERED: methylPREDNISolone ACETATE 80 MG/ML 1 ML VIAL ONE (12:45)
[2023-11-11] MEDS ORDERED: ROPIVACAINE 5MG/ML 20ML VIAL ONE (12:45)
--- NOTE | 2023-11-11 13:06 | P.PCN ---
Description of Procedure: PREOPERATIVE DIAGNOSIS: 1- Lumbar Degenerative Disc Diseases 2-Lumbar spondylosis with Facet arthropathy without myelopathy. 3-lumbar spinal stenosis POSTOPERATIVE DIAGNOSIS: 1-lumbar degenerative disc disease. 2-lumbar spondylosis with facet arthropathy without myelopathy. 3-lumbar spinal stenosis. PROCEDURE Injection of radio contrast material into L4-5 interspace, interpretation of epidurogram, injection of steroid at L4- 5 epidural space under fluoroscopic guidance. ANESTHESIA: Lidocaine 1% subcutaneously. In OR continuous pulse ox, EKG, blood pressure and verbal communication was maintained with the patient. EBL: Minimal PROCEDURE INDICATION: Before the procedure were discussed with the patient detailed procedure, alternatives, complications including infection, bleeding, nerve damage, paralysis all of which could be permanent. Patient understands and all questions were answered. PROCEDURE DESCRIPTION : After getting consent, patient in OR in prone position. Back was prepped with chlorhexidine and draped in sterile fashion. After injecting 10 mL of 1% lidocaine subcutaneously, a 20-gauge Tuohy needle was introduced at L4 5 interspace with loss of resistance technique using a syringe filled with air. Negative CSF, negative blood, negative paresthesia. Needle position was confirmed with AP and lateral view of the fluoroscope. After repeat negative aspiration 2 mL of Omnipaque 200 water soluble contrast was injected. Contrast was noted in the epidural space. No contrast was noted into intrathecal or intravascular space. After repeat negative aspiration 6 mL solution was injected intermittently which consists of 5 mL of preservative-free normal saline mixed with 1 mL of 80 mg Depo-Medrol. Needle was withdrawn intact. Skin was cleansed and Band-Aids was applied. L5 VERTEBRAL BODY IS SACRALISED. VERTEBRAE WERE COUNTED FROM TOP UNDER FLUOROSCOPY. DISPOSITION / PLANS: The patient tolerated the procedure well. No complication. The patient was placed in a supine position and transferred to the recovery area in a stable condition for observation. There was no evidence of lower extremity motor or sensory deficit after the procedure. Patient was discharged from the recovery room after meeting discharge criteria. Home discharge instructions were given to the patient by the staff. The patient was reexamined prior to discharge. The patient will schedule a follow up in the clinic in 2-4 weeks.
[2023-11-11 13:34] VITALS: BP 143/82; PULSE 84; RESP 20
--- NOTE | 2023-11-11 13:48 | FL ---
Fluoroscopy History: MEAGAN RHODES 26 SEC FL TIME .02841 DAP
== END 2023-11-11 13:50 | disposition home or self-care (01) ==
LOC: ORPAIN 12:19
PROVIDERS: ATTEND Pain Medicine Interventional Pain Medicine
DX: M47.816 Spondylosis without myelopathy or radiculopathy, lumbar region (principal); M48.061 Spinal stenosis, lumbar region without neurogenic claudication; M51.36 Other intervertebral disc degeneration, lumbar region; Z79.1 Long term (current) use of non-steroidal anti-inflammatories (NSAID); Z79.899 Other long term (current) drug therapy
CPT/HCPCS: 62323; Q9967; J2795; J1010

== ENCOUNTER → 2023-12-02 | Outpatient (CLI) | payer OTHER | LOC: PNWHC3 14:17 | PROVIDERS: ATTEND Specialist | DX: M54.16 Radiculopathy, lumbar region | CPT/HCPCS: 99211 ==

== ENCOUNTER → 2024-08-09 | Outpatient (CLI) | payer OTHER ==
[2024-08-09 16:14] VITALS: BP 167/78; PULSE 75; RESP 19; TEMP 98.4
--- NOTE | 2024-08-09 19:08 | P.PAINPG ---
PQRS Measure Charge Sheet Comment: HISTORY OF PRESENT ILLNESS: A 64 yr old male presents today w severe and chronic LBP > 1 yr secondary to radiculopathy, spondylosis and facet arthropathy without myelopathy for evaluation s/p R paramedian BELGICA L4-L5 #2. Pt states he experienced 90 % pain relief x 6 mo s/p procedure. Pt states pain level is provoked at 7 /10 in intensity, constant, localized in the lower lumbar spine, tight in character w occasional shooting pain towards the hips and LEs. Pain is provoked by over activity. Pain is alleviated by physician guided exercises from Dr York daily since Jan 2023, medications, repositioning and rest. Interventional procedures include BELGICA L4-L5 x1, R paramedian BELGICA L4-L5 x1 (11/16) Medications include Neurontin, Flexeril, Mobic, ASA, Cannabis use REVIEW OF ORGAN SYSTEMS: CONSTITUTIONAL: No fevers or chills. No recent weight loss. NEUROLOGICAL: + numbness and tingling along the distal extremities. No seizure disorders or headaches. MUSCULOSKELETAL: + pain PSYCHIATRIC: Denies current depression or suicidal thoughts. Physical Examinations : Constitutional : Cooperative , not in acute distress . Neurologic : Cranial nerve II to XII intact. No focal neurological deficits. Psychiatric : alert & oriented x 3. Matching mood & appropriate affect. Judgment & insight intact. Musculoskeletal : Cervical Spine Motor strength in the deltoid and biceps: Normal right side. Normal Left side Motor strength biceps and the wrist extensors: Normal right side . Normal left side Motor strength in the triceps muscle: Normal right side. Normal left side Deep tendon reflexes: Normal at the biceps. Normal at Brachioradialis. Normal at triceps Vertebral body tenderness to deep palpation over Cervical facet loading test: positive bilaterally Spurling test: positive bilaterally Neck distraction test: positive bi laterally Eron sign: positive bilaterally Lumbar spine Motor strength lower extremities ,thigh and legs 5/5 Right side , 5/5 Left side Deep tendon reflexes : Normal Knee Jerk. Normal Ankle Jerk Vertebral body tenderness over L4 Awad Test positive Lumbar facet Loading Test: positive Right / positive Left Range of motion of the lumbar spine Flexion 30 degrees, extension 10 degrees Straight Leg Raise test: Left/ Right positive at <40 degrees [place] test: positive right / positive left. Severe tenderness over the Sacroiliac joint on the Right / Left sides Gaenslen test: positive bilaterally Seated flexion test: positive bilaterally. Sacral spine : Severe tenderness over the Sacroiliac joint: right side / left side Range of motion: Flexion of the lumbar spine <60 degrees Range of motion: Extension of the lumbar spine <20 degrees Gaenslen's Test positive Federico's Test positive [place] test: positive right side / left side Thigh Thrust Test Sacral Thrust Test Imaging: MRI non contrast of the lumbar spine from 11/11/22 reviewed Assessment/ Plan : Lumbar anterolisthesis Recommendation of BELGICA L4-L5 #3. Risks, benefits of procedure discussed and pt verbalized understanding. Protocol for discontinuation/ continuation of medications valery procedure discussed. All questions answered. I have spent greater than 30 minutes on patient care today. Dr Vanegas was available by phone for the evaluation of this patient. The time was used to review the medical records including relevant urine studies and Prescription history (MAPs), review of the available imaging, evaluation and examination of the patient, coordination of care with the medical staff and if applicable referring physicians, as well as creation of the medical record PQRS Narrative: Smoking Status Current every day smoker Hx Alcohol Use (MH) Yes: OCCASIONAL Home Medications: Ambulatory Orders ALPRAZolam [Xanax] 0.5 mg PO BID PRN 02/08/23 Albuterol Inhaler [Ventolin Hfa Inhaler] 2 puff INHALATION RT-Q6H PRN 02/08/23 Cetirizine HCl [Zyrtec] 10 mg PO QAM PRN 02/08/23 Fluticasone Nasal [place] [Flonase Nasal [place]] 1 - 2 spray EA NOSTRIL DAILY PRN 02/08/23 Gabapentin [Neurontin] 300 mg PO TID 02/08/23 Latanoprost [Latanoprost 0.005%] 1 drop BOTH EYES HS 02/08/23 Lidocaine [Aspercreme Patch] 1 patch TRANSDERM DAILY PRN 02/08/23 Losartan Potassium 100 mg PO QAM 02/08/23 Meloxicam [Mobic] 15 mg PO HS 02/08/23 Montelukast [Singulair] 10 mg PO HS 02/08/23 Omeprazole 40 mg PO HS 02/08/23 Rosuvastatin [Crestor] 10 mg PO QAM 02/08/23 Timolol 0.5% Ophth Soln [Timoptic 0.5% Ophth Soln] 1 drop BOTH EYES DAILY 10/16/23 amLODIPine [Norvasc] 10 mg PO QAM 02/08/23 Cyclobenzaprine [Flexeril] 10 mg PO TID PRN 07/06/23 Timolol [Betimol 0.5% Ophth Soln] 1 drop BOTH EYES BID 07/06/23 Tiotropium 18 Mcg/Puff [Spiriva] 1 puff INHALATION BID PRN 07/06/23 Controlled Substance Measures - Controlled Substance Measures Is patient prescribed a controlled substance at discharge?: No
== END ==
LOC: PNWHC3 12:54
PROVIDERS: ATTEND Specialist
DX: M43.16 Spondylolisthesis, lumbar region (principal); F17.200 Nicotine dependence, unspecified, uncomplicated
CPT/HCPCS: 99212

== ENCOUNTER 2024-08-24 11:06 | Day surgery (SDC) | payer OTHER ==
[2024-08-22 14:04] VITALS: BMI 28.3
[2024-08-24 11:27] VITALS: TEMP 97.7
[2024-08-24] MEDS ORDERED: IOPAMIDOL M200 10 ML VIAL ONE (12:29)
[2024-08-24] MEDS ORDERED: methylPREDNISolone ACETATE 80 MG/ML 1 ML VIAL ONE (12:29)
--- NOTE | 2024-08-24 12:41 | P.PCN ---
Description of Procedure: PREOPERATIVE DIAGNOSIS: 1- Lumbar Degenerative Disc Diseases 2-Lumbar spondylosis with Facet arthropathy without myelopathy. 3-lumbar spinal stenosis POSTOPERATIVE DIAGNOSIS: 1-lumbar degenerative disc disease. 2-lumbar spondylosis with facet arthropathy without myelopathy. 3-lumbar spinal stenosis. PROCEDURE Injection of radio contrast material into L4-5 interspace, interpretation of epidurogram, injection of steroid at L4- 5 epidural space under fluoroscopic guidance. ANESTHESIA: Lidocaine 1% subcutaneously. In OR continuous pulse ox, EKG, blood pressure and verbal communication was maintained with the patient. EBL: Minimal PROCEDURE INDICATION: Before the procedure were discussed with the patient detailed procedure, alternatives, complications including infection, bleeding, nerve damage, paralysis all of which could be permanent. Patient understands and all questions were answered. PROCEDURE DESCRIPTION : After getting consent, patient in OR in prone position. Back was prepped with chlorhexidine and draped in sterile fashion. After injecting 10 mL of 1% lidocaine subcutaneously, a 20-gauge Tuohy needle was introduced at L4 5 interspace with loss of resistance technique using a syringe filled with air. Negative CSF, negative blood, negative paresthesia. Needle position was confirmed with AP and lateral view of the fluoroscope. After repeat negative aspiration 2 mL of Omnipaque 200 water soluble contrast was injected. Contrast was noted in the epidural space. No contrast was noted into intrathecal or intravascular space. After repeat negative aspiration 6 mL solution was injected intermittently which consists of 5 mL of preservative-free normal saline mixed with 1 mL of 80 mg Depo-Medrol. Needle was withdrawn intact. Skin was cleansed and Band-Aids was applied. DISPOSITION / PLANS: The patient tolerated the procedure well. No complication. The patient was placed in a supine position and transferred to the recovery area in a stable condition for observation. There was no evidence of lower extremity motor or sensory deficit after the procedure. Patient was discharged from the recovery room after meeting discharge criteria. Home discharge instructions were given to the patient by the staff. The patient was reexamined prior to discharge. The patient will schedule a follow up in the clinic in 2-4 weeks.
[2024-08-24 12:47] VITALS: RESP 14
--- NOTE | 2024-08-24 12:54 | FL ---
Fluoroscopy History: MEAGAN 15 SEC FLUORO, DAP .[id number], MEAGAN [facility], , 08/24/2024 12:52 PM
[2024-08-24 13:01] VITALS: BP 154/85; PULSE 79
== END 2024-08-24 13:15 | disposition home or self-care (01) ==
LOC: ORPAIN 11:06
PROVIDERS: ATTEND Pain Medicine Interventional Pain Medicine
DX: M47.816 Spondylosis without myelopathy or radiculopathy, lumbar region (principal); M51.369 Other intervertebral disc degeneration, lumbar region without mention of lumbar back pain or lower extremity pain; M48.061 Spinal stenosis, lumbar region without neurogenic claudication
CPT/HCPCS: 62323; Q9966; J1010

== ENCOUNTER 2024-10-10 12:53 | Day surgery (SDC) | payer OTHER ==
[2024-10-06 16:12] VITALS: BMI 29.2
[2024-10-10 13:09] VITALS: TEMP 97.5
[2024-10-10] MEDS ORDERED: IOPAMIDOL M300 15ML VIAL ONE (14:04)
[2024-10-10] MEDS ORDERED: methylPREDNISolone ACETATE 80 MG/ML 1 ML VIAL ONE (14:04)
[2024-10-10 14:24] VITALS: RESP 16
[2024-10-10] MEDS: LOSARTAN 50 MG TAB PO STA (14:28)
[2024-10-10] MEDS: amLODIPine 10 MG TAB PO STA (14:28)
--- NOTE | 2024-10-10 14:30 | FL ---
Fluoroscopy INDICATION: Pain FINDINGS: Fluoroscopy time: 8.2 seconds. Total dose area product (DAP) in uGy*m?, mGy*cm? (or similar): 0.28456 Images obtained: 3. Images document needle was directed towards the lumbar spine IMPRESSION: 1. Documentation of fluoroscopy. [facility], , 10/10/2024 2:28 PM
[2024-10-10] MEDS: IV FLUID CONTINUATION 1,000 ML IV ONE (16:00)
[2024-10-10] MEDS: LACTATED RINGERS 1,000 ML IV SCH (16:09)
[2024-10-10] MEDS: LABETALOL SYRINGE 5 MG/ML (4 ML SYR) IVP STA (16:10)
[2024-10-10] MEDS: hydrALAZINE HCL 20 MG/ML 1 ML VIAL IVP STA (16:10)
[2024-10-10 16:45] VITALS: BP 175/83; PULSE 81
== END 2024-10-10 16:49 | disposition home or self-care (01) ==
LOC: ORPAIN 12:53
PROVIDERS: ATTEND Anesthesiology
DX: M47.816 Spondylosis without myelopathy or radiculopathy, lumbar region (principal); M48.061 Spinal stenosis, lumbar region without neurogenic claudication; M51.369 Other intervertebral disc degeneration, lumbar region without mention of lumbar back pain or lower extremity pain
CPT/HCPCS: 62323; J0360; Q9967; J1920; J1010

== ENCOUNTER → 2024-10-30 | Outpatient (CLI) | payer OTHER ==
[2024-10-30 13:45] VITALS: BP 164/91; PULSE 82; RESP 18
--- NOTE | 2024-10-30 14:40 | P.PAINPG ---
Objective - Vital Signs Vital signs: Vital Signs Temp Pulse 82 10/30/24 13:38 Resp 18 10/30/24 13:38 BP 164/91 10/30/24 13:38 Pulse Ox 99 10/30/24 13:38 FiO2 Intake & Output 10/29/24 10/30/24 10/30/24 18:59 06:59 18:59 Weight 88.451 kg PQRS Measure Charge Sheet Mode of Arrival: Ambulatory Comment: HISTORY OF PRESENT ILLNESS: A 64 yr old male presents today w severe and chronic LBP > 1 yr secondary to radiculopathy, spondylosis and facet arthropathy without myelopathy for evaluation s/p BELGICA L4-L5 #4. Pt states he experienced 55 % pain relief x 2 wks s/p procedure. Pt states pain level is provoked at 5-6 /10 in intensity, constant, localized in the lower lumbar spine, tight in character w occasional shooting pain towards the hips and LEs. Pain is provoked by over activity. Pain is alleviated by physician guided exercises from Dr York daily since Jan 2023, medications, repositioning and rest. Interventional procedures include BELGICA L4-L5 x3 (09/17, 10/18), R paramedian BELGICA L4-L5 x1 (11/16) Medications include Neurontin, Flexeril, Cannabis use REVIEW OF ORGAN SYSTEMS: CONSTITUTIONAL: No fevers or chills. No recent weight loss. NEUROLOGICAL: + numbness and tingling along the distal extremities. No seizure disorders or headaches. MUSCULOSKELETAL: + pain PSYCHIATRIC: Denies current depression or suicidal thoughts. Physical Examinations : Constitutional : Cooperative , not in acute distress . Neurologic : Cranial nerve II to XII intact. No focal neurological deficits. Psychiatric : alert & oriented x 3. Matching mood & appropriate affect. Judgment & insight intact. Musculoskeletal : Cervical Spine Motor strength in the deltoid and biceps: Normal right side. Normal Left side Motor strength biceps and the wrist extensors: Normal right side . Normal left side Motor strength in the triceps muscle: Normal right side. Normal left side Deep tendon reflexes: Normal at the biceps. Normal at Brachioradialis. Normal at triceps Vertebral body tenderness to deep palpation over Cervical facet loading test: positive bilaterally Spurling test: positive bilaterally Neck distraction test: positive bilaterally Eron sign: positive bilaterally Lumbar spine Motor strength lower extremities ,thigh and legs 5/5 Right side , 5/5 Left side Deep tendon reflexes : Normal Knee Jerk. Normal Ankle Jerk Vertebral body tenderness over L3 Awad Test positive BL L3-L4 Lumbar facet Loading Test: positive Right / positive Left Range of motion of the lumbar spine Flexion 30 degrees, extension 10 degrees Straight Leg Raise test: Left < Right positive at <35 degrees [place] test: positive right / positive left. Severe tenderness over the Sacroiliac joint on the Right / Left sides Gaenslen test: positive bilaterally Seated flexion test: positive bilaterally. Sacral spine : Severe tenderness over the Sacroiliac joint: right side / left side Range of motion: Flexion of the lumbar spine <60 degrees Range of motion: Extension of the lumbar spine <20 degrees Gaenslen's Test positive Federico's Test positive [place] test: positive right side / left side Thigh Thrust Test Sacral Thrust Test Imaging: MRI non contrast of the lumbar spine from 11/11/22 reviewed Assessment/ Plan : Lumbar anterolisthesis Recommendation of BELGICA L3-L4 #3. Risks, benefits of procedure discussed and pt verbalized understanding. Protocol for discontinuation/ continuation of medications valery procedure discussed. All questions answered. I have spent greater than 30 minutes on patient care today. Dr Vanegas was available by phone for the evaluation of this patient. The time was used to review the medical records including relevant urine studies and Prescription history (MAPs), review of the available imaging, evaluation and examination of the patient, coordination of care with the medical staff and if applicable referring physicians, as well as creation of the medical record - Pain Location Lower Back Pharmacological Interventions: Medication PQRS Narrative: Smoking Status Current every day smoker Blood Pressure 164/91 Pain Intensity [Lower Back] 5 Scale Used Numeric (1 - 10) Hx Alcohol Use (MH) Yes: OCCASIONAL Home Medications: Ambulatory Orders ALPRAZolam [Xanax] 0.5 mg PO BID PRN 02/08/23 Albuterol Inhaler [Ventolin Hfa Inhaler] 2 puff INHALATION RT-Q6H PRN 02/08/23 Cetirizine HCl [Zyrtec] 10 mg PO QAM PRN 02/08/23 Fluticasone Nasal [place] [Flonase Nasal [place]] 1 - 2 spray EA NOSTRIL DAILY PRN 02/08/23 Latanoprost [Latanoprost 0.005%] 1 drop BOTH EYES HS 02/08/23 Losartan Potassium 100 mg PO QAM 02/08/23 Meloxicam [Mobic] 15 mg PO HS 02/08/23 Montelukast [Singulair] 10 mg PO HS 02/08/23 Omeprazole 40 mg PO HS 02/08/23 Rosuvastatin [Crestor] 10 mg PO QAM 02/08/23 amLODIPine [Norvasc] 10 mg PO QAM 02/08/23 Cyclobenzaprine [Flexeril] 10 mg PO TID PRN 07/06/23 Tiotropium 18 Mcg/Puff [Spiriva] 1 puff INHALATION BID PRN 07/06/23 timoloL [Betimol 0.5% Ophth Soln] 1 drop BOTH EYES BID 07/06/23 diazePAM [Valium] 10 mg PO DAILY 1 Days #1 tab 10/30/24 Controlled Substance Measures - Controlled Substance Measures Is patient prescribed a controlled substance at discharge?: Yes When asked, does pt state using other controlled substances?: No If prescribed controlled substance>3 days was MAPS reviewed?: Prescribed <3 Days
== END ==
LOC: PNWHC3 13:28
PROVIDERS: ATTEND Specialist
DX: M43.16 Spondylolisthesis, lumbar region (principal); F12.90 Cannabis use, unspecified, uncomplicated; F17.200 Nicotine dependence, unspecified, uncomplicated
CPT/HCPCS: 99212

== ENCOUNTER 2024-11-23 11:46 | Day surgery (SDC) | payer OTHER ==
[2024-11-20 09:55] VITALS: BMI 28.8
[2024-11-23 12:49] VITALS: TEMP 97
[2024-11-23] MEDS ORDERED: IOPAMIDOL M200 10 ML VIAL ONE (13:37)
[2024-11-23] MEDS ORDERED: methylPREDNISolone ACETATE 80 MG/ML 1 ML VIAL ONE (13:37)
[2024-11-23 13:50] VITALS: PULSE 78; RESP 16
--- NOTE | 2024-11-23 14:02 | FL ---
EXAMINATION TYPE: FL guided pain mgmt statistic Intraoperative/procedural fluoroscopic services were provided. CLINICAL INDICATION:Male, 64 years old with history of LESI; , PH[facility] FINDINGS: Fluoroscopic image demonstrating lumbar epidural steroid injection. No radiographic evidence for comp lication. Total fluoroscopy time is 2.8 seconds. DAP: [id number] mGym2 Please see the operative/procedural note for further details. [facility], , 11/23/2024 1:59 PM
[2024-11-23 14:08] VITALS: BP 125/75
--- NOTE | 2024-11-23 14:18 | P.PCN ---
Date of Procedure: 11/23/24 Procedure(s) Performed: PREOPERATIVE DIAGNOSIS: 1- Lumbar Degenerative Disc Diseases 2-Lumbar spondylosis with Facet arthropathy without myelopathy. 3-lumbar radiculopathy POSTOPERATIVE DIAGNOSIS: 1-lumbar degenerative disc disease. 2-lumbar spondylosis with facet arthropathy without myelopathy. 3-lumbar radiculopathy PROCEDURE 1. Lumbar epidural steroid injection under fluoroscopic guidance at the L3-4 level. (Fluoroscopy imaging was available in radiology department) 2. Lumbar epidurogram. ANESTHESIA: Lidocaine 1% 3 and then only. EBL: Minimal PROCEDURE INDICATION: The patient with low back pain and radiculitis symptoms unresponsive to conservative treatment. Fluoroscopy was used to optimize visualization of the needle placement and to maximize safety. PROCEDURE DESCRIPTION / TECHNIQUE: The patient was seen and identified in the preoperative area. Risks, benefits, complications including but not limited to infections ,bleeding ,allergic reaction to the medications ,nerve damage and not complete pain releife , and alternatives were discussed with the patient. The patient agreed to proceed with the procedure and signed the consent, and vital signs were stable. Patient was taken to the OR and time out was completed. The patient was placed in the prone position on procedure table and a pillow was placed under the abdomen to reduce lumbar lordosis. The lumbosacral area was prepped and draped in the usual sterile fashion.ere closely monitored during the procedure. Vital signs was monitered during the entire procedure. Using anterior-posterior fluoroscopy, the L3-4 interlaminar space was identified and the skin over this site was marked and then infiltrated with 1% lidocaine subcutaneously. Subsequently, a 20-gauge Tuohy epidural needle was inserted and advanced toward the epidural space using the ``Loss of resistance technique and guided by AP and lateral fluoroscopy. The correct needle position in the epidural space was verified with the injection of 2 mL of the water soluble contrast dye Isovue 200 contrast and observing an excellent epidurogram with the epidural spread of the dye, after negative aspiration for blood and CSF and in the absence of paresthesias. Again after negative aspiration, a 6 ml mixture containing 80 mg of Depo-medrol ( Preservetive Free ), and 2 ml of preservative free Normal Saline, and 2 ml of preservative free lidocaine 1% solution was injected and a washout of epidurogram was seen. Needle was withdrawn intact, skin was cleansed, and bandages were applied. COMPLICATIONS: None DISPOSITION / PLANS: The patient was placed in a supine position and transferred to the recovery area in a stable condition for observation. There was no evidence of lower extremity motor or sensory deficit after the procedure. Patient was discharged from the recovery room after meeting discharge criteria. Home discharge instructions were given to the patient by the staff. The patient was reexamined prior to discharge. The patient will schedule a follow up in the clinic in 2-4 weeks.
== END 2024-11-23 14:17 | disposition home or self-care (01) ==
LOC: ORPAIN 11:46
PROVIDERS: ATTEND Specialist
DX: M51.16 Intervertebral disc disorders with radiculopathy, lumbar region (principal); M47.26 Other spondylosis with radiculopathy, lumbar region
CPT/HCPCS: 62323; Q9966; J1010